=== PATIENT | male | born 1990 | race African-American/Black ===

== ENCOUNTER 2016-05-16 07:57 | Emergency (ER) | payer SELFPAY ==
[2016-05-16] MEDS ORDERED: AMOXicillin 250 MG CAP ONE (08:36)
[2016-05-16] MEDS ORDERED: Benzonatate 100 MG CAP ONE (08:36)
== END 2016-05-16 08:45 | disposition home or self-care (01) ==
LOC: MADERS 07:57
DX: J20.9 Acute bronchitis, unspecified (principal); F17.210 Nicotine dependence, cigarettes, uncomplicated
CPT/HCPCS: 99283

== ENCOUNTER 2016-05-25 23:25 | Emergency (ER) | payer SELFPAY | END 2016-05-26 00:55 | disposition home or self-care (01) | LOC: MADERS 23:25 | DX: G47.00 Insomnia, unspecified (principal); F17.210 Nicotine dependence, cigarettes, uncomplicated | CPT/HCPCS: 99283 ==

== ENCOUNTER 2016-06-07 10:12 | Emergency (ER) | payer SELFPAY ==
[2016-06-07] MEDS ORDERED: Ibuprofen 800 MG TAB ONE (10:46)
== END 2016-06-07 10:50 | disposition home or self-care (01) ==
LOC: MADERS 10:12
DX: S39.012A Strain of muscle, fascia and tendon of lower back, initial encounter (principal); F17.210 Nicotine dependence, cigarettes, uncomplicated; X58.XXXA Exposure to other specified factors, initial encounter
CPT/HCPCS: 99283

== ENCOUNTER 2018-03-14 15:57 | Emergency (ER) | payer SELFPAY | END 2018-03-14 16:28 | disposition home or self-care (01) | LOC: MADERS 15:57 | DX: J34.89 Other specified disorders of nose and nasal sinuses (principal); F17.210 Nicotine dependence, cigarettes, uncomplicated | CPT/HCPCS: 99282 ==

== ENCOUNTER 2018-06-23 22:14 | Emergency (ER) | payer SELFPAY ==
[~2018-06-23 22:14] MED LIST: Lidocaine 1% 20 ML MDV ONE
[2018-06-24] MEDS ORDERED: cefTRIAXone\\ROCEPHIN 1 GM VIAL ONE (00:08)
[2018-06-24] MEDS ORDERED: Azithromycin 250 MG TAB ONE (00:10)
[2018-06-24 00:33] LABS: Bilirubin Negative (Negative); Blood, Urine Negative (Negative); Glucose, Urine (Dipstick) Negative (Negative); Leukocyte Small (Negative); Nitrite Negative (Negative); Protein, Urine (Dipstick) Negative (Neg-Trace); Urobilinogen 0.2 mg/dL (0.2-1.0)
[2018-06-24 00:35] LABS: Clarity Hazy (Clear)
[2018-06-24 00:41] LABS: Bacteria/HPF Rare-Few HPF (None Seen); RBC/HPF 0-3 HPF (0-3); Squamous Epithelial None Seen HPF (0-3)
== END 2018-06-24 00:25 | disposition home or self-care (01) ==
LOC: MADERS 22:14
DX: N34.1 Nonspecific urethritis (principal); I10 Essential (primary) hypertension; F17.210 Nicotine dependence, cigarettes, uncomplicated
CPT/HCPCS: 81003; 81015; 87491; 87591; 96372; J0696; J2001

== ENCOUNTER 2019-03-10 10:09 | Emergency (ER) | payer SELFPAY ==
--- NOTE | 2019-03-10 10:33 | RAD ---
XR Chest Pa Lat STANDARD HISTORY: Chest pain, cough COMPARISON: 10/30/2013 FINDINGS: The heart size is normal. The lungs are well expanded without focal areas of consolidation, pneumothorax or pleural effusions. IMPRESSION: No radiographic evidence of acute cardiopulmonary process.
[2019-03-10] MEDS ORDERED: Dexamethasone 4 MG TAB ONE (10:41)
[2019-03-10] MEDS ORDERED: Azithromycin 250 MG TAB ONE (10:41)
[2019-03-10] MEDS ORDERED: Benzonatate 100 MG CAP ONE (10:41)
== END 2019-03-10 11:05 | disposition home or self-care (01) ==
LOC: MADERS 10:09
DX: J18.9 Pneumonia, unspecified organism (principal); F17.210 Nicotine dependence, cigarettes, uncomplicated
CPT/HCPCS: 71046; J8540

== ENCOUNTER 2019-06-14 16:46 | Emergency (ER) | payer SELFPAY | END 2019-06-14 17:15 | disposition home or self-care (01) | LOC: MADERS 16:46 | DX: Z20.2 Contact with and (suspected) exposure to infections with a predominantly sexual mode of transmission (principal); F17.210 Nicotine dependence, cigarettes, uncomplicated | CPT/HCPCS: 99281 ==

== ENCOUNTER 2020-02-14 09:17 | Emergency (ER) | payer SELFPAY ==
[2020-02-15 05:44] LABS: SARS-CoV-2 MS2 Positive; SARS-CoV-2 N Gene Negative; SARS-CoV-2 S Gene Negative; SARS-CoV-2 by NAA Not Detected (NotDetected); SARS-CoV-2 orf1ab Negative
== END 2020-02-14 10:15 | disposition home or self-care (01) ==
LOC: MADERS 09:17
DX: B34.9 Viral infection, unspecified (principal); Z20.828 Contact with and (suspected) exposure to other viral communicable diseases; Z71.6 Tobacco abuse counseling; F17.210 Nicotine dependence, cigarettes, uncomplicated
CPT/HCPCS: 87635; 99406; U0003